=== PATIENT | male | born 1960 | race Caucasian/White ===

== ENCOUNTER 2023-11-14 12:37 | Outpatient (CLI) | payer OTHER | END 2023-11-14 12:49 | disposition home or self-care (01) | LOC: RAD 12:37 | DX: S82.851A Displaced trimalleolar fracture of right lower leg, initial encounter for closed fracture (principal) ==

== ENCOUNTER 2024-03-17 08:02 | Outpatient (CLI) | payer OTHER | END 2024-03-17 08:13 | disposition home or self-care (01) | LOC: RAD 08:02 | PROVIDERS: ATTEND Orthopaedic Surgery | DX: M79.671 Pain in right foot (principal) ==

== ENCOUNTER 2024-06-24 10:05 | Outpatient (CLI) | payer OTHER | END 2024-06-24 10:07 | disposition home or self-care (01) | LOC: MRI 10:05 | PROVIDERS: ATTEND Orthopaedic Surgery | DX: M79.671 Pain in right foot (principal); G57.61 Lesion of plantar nerve, right lower limb | CPT/HCPCS: 73719 ==